=== PATIENT | male | born 1975 | race Caucasian/White ===

== ENCOUNTER 2018-03-26 18:13 | Emergency (ER) | payer OTHER ==
[~2018-03-26] VITALS: Ht 177.8 cm; Wt 86.9 kg
[2018-03-26 18:17] VITALS: BP 130/78
[2018-03-26 18:53] LABS: BASOPHILS # (AUTO) 0.04 x10^3/uL (0-0.1); BASOPHILS % (AUTO) 0 % (0-1); EOSINOPHILS # (AUTO) 0.01 x10^3/uL (0-0.4); EOSINOPHILS % (AUTO) 0 % (1-7); LYMPHOCYTES # (AUTO) 0.83 x10^3/uL (1-3.4); LYMPHOCYTES % (AUTO) 6 % (22-44); MD NO; MEAN CORPUSCULAR HEMOGLOBIN 29.9 pg (27.5-34.5); MEAN CORPUSCULAR VOLUME 87.9 fL (81-97); MEAN PLATELET VOLUME 9.6 fL (7.4-10.4); MONOCYTES # (AUTO) 0.62 x10^3/uL (0.2-0.8); MONOCYTES % (AUTO) 4 % (2-9); NEUTROPHILS # (AUTO) 12.78 x10^3/uL (1.8-6.8); NEUTROPHILS % (AUTO) 90 % (42-75); PLATELET COUNT 302 x10^3/uL (130-400); RED BLOOD COUNT 5.02 x10^6/uL (4.38-5.82); RED CELL DISTRIBUTION WIDTH 13.2 % (9.4-14.8)
[2018-03-26 19:00] LABS: ALBUMIN 4.3 g/dL (3.4-5.0); ANION GAP 6 mmol/L (5-15); CALCIUM 9.7 mg/dL (8.5-10.1); CHLORIDE 106 mmol/L (98-107)
[2018-03-26 19:04] LABS: ALANINE AMINOTRANSFERASE 56 U/L (12-78); ALKALINE PHOSPHATASE 123 U/L (45-117); BILIRUBIN,TOTAL 0.6 mg/dL (0.2-1.0); CREATININE 1.18 mg/dL (0.7-1.3); TOTAL PROTEIN 8.8 g/dL (6.4-8.2)
[2018-03-26 20:41] LABS: MICROSCOPIC INDICATED
[2018-03-26 21:42] LABS: CULTURE INDICATED? NO
== END 2018-03-26 21:47 | disposition home or self-care (01) ==
LOC: ED 21:28
DX: N13.2 Hydronephrosis with renal and ureteral calculous obstruction (principal)
CPT/HCPCS: 36415; 74176; 80053; 81001; 85025; 99285

== ENCOUNTER 2019-07-05 15:32 | Emergency (ER) | payer OTHER ==
[~2019-07-05] VITALS: Ht 177.8 cm; Wt 88.0 kg
[2019-07-05 15:34] VITALS: BP 136/89
--- NOTE | 2019-07-05 15:41 | NUR ---
PT HERE WITH C/O BACK PAIN. PT STATES HE WAS ON A ROOF FOR WORK AND WAS WEARING A HARNESS AND SLIPPED OFF THE ROOF, DID NOT HIT THE GROUND. PT ALSO DENIES HITTING HEAD. PT C/O MID TO LOWER BACK AND BILATERAL HYP AND SHOULDER PAIN.
--- NOTE | 2019-07-05 15:54 | NUR ---
PT TO RADIOLOGY.
[2019-07-05] MEDS ORDERED: KETOROLAC 30 MG/1 ML IM ONE (16:00)
[2019-07-05] MEDS ORDERED: CYCLOBENZAPRINE 10 MG TABLET PO ONE (16:00)
[2019-07-05] MEDS ORDERED: KETOROLAC 30 MG/1 ML ONE (16:13)
[2019-07-05] MEDS ORDERED: CYCLOBENZAPRINE 10 MG TABLET ONE (16:13)
--- NOTE | 2019-07-05 16:16 | NUR ---
PT MEDICATED PER ORDER.
--- NOTE | 2019-07-05 16:45 | NUR ---
Patient/Caregiver given discharge instructions and they have confirmed that they understand the instructions. Patient ambulatory with steady gait.
== END 2019-07-05 16:48 | disposition home or self-care (01) ==
LOC: ED 16:46
DX: S39.012A Strain of muscle, fascia and tendon of lower back, initial encounter (principal); S29.019A Strain of muscle and tendon of unspecified wall of thorax, initial encounter; S20.212A Contusion of left front wall of thorax, initial encounter; S20.211A Contusion of right front wall of thorax, initial encounter; M51.36 Other intervertebral disc degeneration, lumbar region; M51.34 Other intervertebral disc degeneration, thoracic region; W01.0XXA Fall on same level from slipping, tripping and stumbling without subsequent striking against object, initial encounter; Y93.89 Activity, other specified; Y92.69 Other specified industrial and construction area as the place of occurrence of the external cause; Y99.8 Other external cause status
CPT/HCPCS: 71045; 72072; 72110; 73502; 96372; 99283; J1885